=== PATIENT | female | born 1980 | race Hispanic/Latino ===

== ENCOUNTER 2023-02-03 14:07 | Emergency (ER) | payer BC ==
[~2023-02-03] VITALS: Ht 167.6 cm; Wt 108.9 kg
[2023-02-03 14:54] VITALS: O2SAT 99
[2023-02-03] MEDS ORDERED: PYRIDIUM200 MG PO (15:05)
[2023-02-03] MEDS ORDERED: MACROBID 100 M100 MG PO (15:05)
[2023-02-03 15:30] LABS: CLARITY,URINE SL CLOUDY (CLEAR); COLOR,URINE YELLOW (YELLOW); KETONES,URINE NEGATIVE (NEGATIVE); LEUKOCYTE ESTERASE ,URINE TRACE (NEGATIVE); NITRITE,URINE NEGATIVE (NEGATIVE); PROTEIN,URINE DIPSTICK NEGATIVE (NEGATIVE); URINE UROBILINOGEN 0.2 mg/dL (0.2 - 1)
[2023-02-03 15:45] LABS: BACTERIA,URINE MODERATE /HPF; EPITHELIAL CELLS,URINE MODERATE /LPF; WBC,URINE (MAN) 21-50 /HPF (0-5)
== END 2023-02-03 17:02 | disposition home or self-care (01) ==
LOC: ER 14:20
DX: R30.0 Dysuria (principal); I10 Essential (primary) hypertension
CPT/HCPCS: 81001; 87086; 87186; 99282